=== PATIENT | male | born 1950 | race Caucasian/White ===

== ENCOUNTER 2016-05-08 06:54 | Day surgery (SDC) | payer MEDICARE, OTHER ==
[~2016-05-08] VITALS: Ht 170.2 cm; Wt 87.0 kg
[~2016-05-08 06:54] MED LIST: LACTATED RINGERS 1,000 ML IV SCH; SODIUM CHLORIDE FLUSH 3 ML SYR IV PRN
[2016-05-08 07:14] VITALS: BP 148/89
[2016-05-08] MEDS ORDERED: ALFENTANIL 500 MCG/ML (ALFENTA) 5 ML AMP IV ONE (07:17)
[2016-05-08] MEDS ORDERED: PROPOFOL 20 ML IV ONE (07:17)
[2016-05-08] MEDS ORDERED: MIDAZOLAM 2 MG/2 ML (VERSED) VIAL ONE (07:17)
[2016-05-08 08:51] VITALS: BP 122/77
[2016-05-08 09:04] VITALS: BP 111/70
== END 2016-05-08 09:13 | disposition home or self-care (01) ==
LOC: ASC 06:54
PROVIDERS: ATTEND Surgery
DX: Z12.11 Encounter for screening for malignant neoplasm of colon (principal); K57.30 Diverticulosis of large intestine without perforation or abscess without bleeding; Z80.0 Family history of malignant neoplasm of digestive organs
CPT/HCPCS: G0105; J2250; J7120

== ENCOUNTER → 2016-06-11 | Outpatient (CLI) | payer MEDICARE, OTHER ==
[~2016-06-11] MED LIST changes: +CEPH-331 PO; +CEPH-507 PO; +CHOL200014 PO; +FAMO20TA45 PO; +GBPN600T PO; -LACTATED RINGERS 1,000 ML IV SCH; +LEDI1TAB PO; +LSNP10T PO; +OMG1KC PO; -SODIUM CHLORIDE FLUSH 3 ML SYR IV PRN; +ZLP10T; +ZOLP10TA PO
--- NOTE | 2016-06-11 15:43 | Diagnostic Imaging Report ---
PROCEDURE: CT chest with and without contrast. TECHNIQUE: Multiple contiguous axial images were obtained through the chest before and after administration of intravenous contrast. INDICATION: Left sternal and clavicular pain. COMPARISON: 06/17/2015. FINDINGS: CT chest: Evaluation of the lung beaver demonstrates a few scattered areas of air trapping. There is a 7 mm micronodule within the lateral left lung base. This is stable compared to 02/27/2011. A 6 mm micronodule is also noted within the lateral right lower lobe. This too is stable compared to 02/27/2011. No new pulmonary nodules or masses are identified. There is no focal consolidation, pleural effusion, nor pneumothorax. Cardiomediastinal structures show normal heart size. Ascending aorta is borderline aneurysmally dilated measuring approximately 4 x 3.8 cm in axial dimension. There is some scattered calcified aortic and coronary atherosclerosis. There is no evidence of aortic dissection. There is no large pericardial effusion. No pathologically enlarged or morphologically abnormal adenopathy is seen within the mediastinum, alexi, nor axillae. Evaluation of the sternoclavicular joint spaces demonstrates asymmetric joint effusion on the left. There is suggestion of mild synovial enhancement on the left as well. There is no appreciable underlying osteolysis. Bony structures of the neck show no lytic or blastic lesions. Age-related degenerative changes of the cervical spine are noted. Included portions of the upper abdomen show partially visualized nonspecific density in the region of the pancreatic tail. Note is made of similar appearance on previous CT abdomen dated 08/22/2008. IMPRESSION: 1. Subtle asymmetric left-sided joint effusion with findings suspicious for synovial enhancement. Findings are nonspecific, but can be on the basis of infectious or inflammatory synovitis/arthritis. Correlation with joint aspiration is recommended. 2. No acute cardiopulmonary process. 3.. Bibasilar lung nodules, stable compared to 02/27/2011 consistent with benignity. 4. Borderline aneurysmal dilatation of the ascending aorta. Dictated by: Dictated on workstation # [id number]
--- NOTE | 2016-06-11 15:52 | Diagnostic Imaging Report ---
PROCEDURE: CT neck soft tissue with contrast. TECHNIQUE: Multiple contiguous axial images were obtained through the neck after the administration of contrast. INDICATION: Left sternoclavicular pain. COMPARISON: None. FINDINGS: Evaluation of the sternoclavicular joint spaces demonstrates asymmetric joint effusion on the left. There is suggestion of mild synovial enhancement on the left as well. There is no appreciable underlying osteolysis. Bony structures of the neck show no lytic or blastic lesions. Age-related degenerative changes of the cervical spine are noted. The visualized portions of the nasopharynx, oropharynx and the hypopharynx are unremarkable. There is no airway compromise. No pathologically enlarged cervical lymph nodes are seen. No masses or fluid collections are identified in the neck. The deep spaces of the neck are unremarkable. There is no abnormal enhancement. The parotid, submandibular and thyroid glands are unremarkable. The visualized portions of the intracranial structures demonstrate no acute abnormalities. The paranasal sinuses show scattered mucosal thickening. CT of the chest was separately performed and separately dictated. There is calcified carotid atherosclerosis. Finally, note is made of multiple maxillary and mandibular dental caries with multiple periapical lucencies IMPRESSION: 1. Mild asymmetric left-sided joint effusion with findings suspicious for synovial enhancement. Findings are nonspecific, but can be on the basis of infectious or inflammatory synovitis/arthritis. Correlation with joint aspiration is recommended. 2. No distinct lytic or blastic bony lesion. 3. Maxillary and mandibular dental caries with multiple periapical lucencies concerning for periapical abscesses. Correlation with dental consultation is recommended. Dictated by: Dictated on workstation # [id number]
== END ==
LOC: RAD 12:40
PROVIDERS: ATTEND Family Medicine
DX: M25.512 Pain in left shoulder (principal); M25.412 Effusion, left shoulder
CPT/HCPCS: 70491; 71270; Q9967

== ENCOUNTER 2016-06-28 07:47 | Emergency (ER) | payer MEDICARE, OTHER ==
[~2016-06-28] VITALS: Ht 170.2 cm; Wt 91.0 kg
[2016-06-28] MEDS ORDERED: ONDANSETRON 2 MG/ML (Z0FRAN) 2 ML VIAL IV STA (08:08)
[2016-06-28] MEDS ORDERED: SODIUM CHLORIDE FLUSH 10 ML SYR IV PRN (08:10)
[2016-06-28] MEDS ORDERED: morphine INJ 4 MG/ML 1 ML SYRINGE IV PRN ×3 (08:10→11:00)
[2016-06-28] MEDS ORDERED: NS IV 500 ML 500 ML IV SCH (08:10)
[2016-06-28] MEDS: SODIUM CHLORIDE FLUSH 3 ML SYR IV PRN ×2 (08:19→11:03)
[2016-06-28 08:25] LABS: BASOPHILS % (AUTO) 0 % (0-2); EOSINOPHILS # (AUTO) 0.3 10^3uL; EOSINOPHILS % (AUTO) 2 % (0-4); LYMPHOCYTES # (AUTO) 1.4 X10^3; MEAN CORPUSCULAR HEMOGLOBIN 29.7 PG (26.0-34.0); MEAN CORPUSCULAR VOLUME 85 FL (80-100); MEAN PLATELET VOLUME 11.7 FL (6.0-9.5); MONOCYTES # (AUTO) 1.5 X10^3; MONOCYTES % (AUTO) 10 % (3-11); NEUTROPHILS # (AUTO) 11.4 X10^3; NEUTROPHILS % (AUTO) 78 % (51-67); PLATELET COUNT 182 10^3uL (150-450); WHITE BLOOD COUNT 14.68 10^3uL (4.0-11.0)
[2016-06-28 08:27] LABS: BILIRUBIN,URINE Negative (Negative); CLARITY,URINE Clear; COLOR,URINE Yellow; GLUCOSE, URINE (UA) Negative (Negative); LEUKOCYTE ESTERASE ,URINE Negative (Negative); PH,URINE 5.5 (5.0 - 8.0); UROBILINOGEN,URINE 0.2 mg/dL (0.2-1.0)
[2016-06-28 08:35] LABS: ALBUMIN 4.3 g/dL (3.4-5.0); ANION GAP 16.1 MEQ/L (3-15); CALCULATED IONIZED CALCIUM 3.7 mg/dL (3.8-4.6); TOTAL PROTEIN 8.5 g/dL (6.4-8.5)
[2016-06-28] MEDS ORDERED: diphenhydrAMINE 50 MG/ML INJ (BENADRYL) IV SCH (09:00)
--- NOTE | 2016-06-28 10:42 | Diagnostic Imaging Report ---
PROCEDURE: CT abdomen and pelvis with contrast. TECHNIQUE: Multiple contiguous axial images were obtained through the abdomen and pelvis after administration of intravenous contrast. INDICATION: Abdominal pain. FINDINGS: There are subcentimeter low-density lesions in the liver most consistent with cysts. No suspicious liver lesion is seen. The bile ducts are not dilated. The gallbladder is absent. The spleen, adrenals and kidneys are normal. There is low-density area which has appearance of being fluid around the tail of the pancreas. This could be a solid mass. If this is a mass this is probably benign as there is no change from a CT from 08/22/2008. The head and proximal body are normal with no inflammation evident. There is diverticulosis of the sigmoid colon. There is edema in and around the sigmoid colon consistent with diverticulitis. No abscess is present at this time. IMPRESSION: There are changes of acute diverticulitis of the sigmoid colon with no obstruction or abscess present at this time. There is low-density lobulated air around the tail of the pancreas which could be some loculated fluid. Solid mass is probably benign in that this has shown no change when compared to a prior CT from 08/22/2008. Dictated by: Dictated on workstation # [id number]
[2016-06-28] MEDS ORDERED: CPR500T PO (10:57)
[2016-06-28] MEDS ORDERED: ONDAN4ODT PO (10:57)
[2016-06-28] MEDS ORDERED: METR500T PO (10:57)
[2016-06-28] MEDS ORDERED: OXYC1TAB87 PO (10:57)
[2016-06-28 11:08] VITALS: BP 132/74
== END 2016-06-28 11:09 | disposition home or self-care (01) ==
LOC: ED 07:49
DX: K57.32 Diverticulitis of large intestine without perforation or abscess without bleeding (principal)
CPT/HCPCS: 36415; 74177; 80053; 81003; 83690; 85025; 96361; 96374; 96375; 96376; 99284; J1200; J2270; J2405; J7040; Q9967; 99283